=== PATIENT | female | born 1965 | race Caucasian/White ===

== ENCOUNTER 2020-06-18 15:22 | Outpatient (CLI) | payer BC, SELFPAY ==
--- NOTE | 2020-06-18 15:37 | MM_ITS ---
WS: [id number] BILATERAL DIGITAL SCREENING MAMMOGRAPHY WITH CAD CLINICAL INFORMATION: SCREEN HISTORY: Screening mammogram. No current complaints. COMPARISON: May 01, 2019 TECHNIQUE: Bilateral CC and MLO views. FINDINGS: The breasts are composed of heterogeneous fibroglandular density tissue, which can limit the detectio n of small underlying mass lesions. No suspicious mass, asymmetry, calcifications, or architectural d istortion. No evidence of malignancy. Vascular calcification. MM/[id number] IMPRESSION: BI-RADS: 2-Benign FOLLOW UP: 1 Year Follow-up Recommend return to annual screening mammography.
== END 2020-06-18 15:23 | disposition home or self-care (01) ==
LOC: RADSHAW 15:27
PROVIDERS: PCP Nurse Practitioner; Visit Provider Nurse Practitioner
DX: Z12.31 Encounter for screening mammogram for malignant neoplasm of breast (principal)
CPT/HCPCS: 77067

== ENCOUNTER 2021-09-09 08:33 | Outpatient (CLI) | payer BC, SELFPAY ==
--- NOTE | 2021-09-09 08:52 | MM_ITS ---
WS: [id number] Bilateral screening digital mammogram, 09/09/2021 Clinical Data: SCREENING Comparison: 06/18/2020, 05/01/2019, 04/08/2018. Findings: The breast parenchymal pattern shows fibroglandular tissue. No spiculated masses or clustered calcif ications are seen. There are no secondary signs of carcinoma. MM/[id number] Impression: 1. Negative bilateral mammogram unchanged. 2. Recommend annual screening mammograms. BIRADS: 1-Negative FOLLOW UP: 1 Year Follow-up The CAD checker in was used.
== END 2021-09-09 08:34 | disposition home or self-care (01) ==
PROVIDERS: PCP Nurse Practitioner; Visit Provider Nurse Practitioner
DX: Z12.31 Encounter for screening mammogram for malignant neoplasm of breast (principal)
CPT/HCPCS: 77067

== ENCOUNTER 2022-08-30 19:51 | Emergency (ER) | payer BC, SELFPAY ==
--- NOTE | 2022-08-30 19:56 | XRR_ITS ---
PROCEDURE INFORMATION: Exam: XR Chest Exam date and time: 08/30/2022 8:06 PM Age: 57 years old Clinical indication: Shortness of breath; Patient HX: N/v; Additional info: SOB TECHNIQUE: Imaging protocol: Radiologic exam of the chest. Views: 1 view. COMPARISON: CR XR chest 1V [id number] 10/31/2018 3:17 PM FINDINGS: Lungs: Unremarkable. No consolidation. Pleural spaces: Unremarkable. No pleural effusion. No pneumothorax. Heart/Mediastinum: Unremarkable. No cardiomegaly. Bones/joints: Unremarkable. XR/XR chest 1V portable [id number] IMPRESSION: No acute findings.
[2022-08-30 20:20] VITALS: BP 134/69; PULSE 115; RESP 15; TEMP 37.8; O2SAT 96; BMI 24.1
[2022-08-30 20:38] LABS: Influenza A by IFA positive (Negative); Influenza B by IFA negative (Negative)
--- NOTE | 2022-08-30 20:57 | W.ED.URI ---
HPI - URI/Sore Throat General: Chief Complaint: Nausea/Vomiting/Diarrhea Stated Complaint: flu symptoms Time Seen by Provider: 08/30/22 20:53 History of Present Illness: 57-year-old female comes in today with malaise for 2 days and fever. Patient also reports poor oral intake. Patient appears unwell but not toxic. Patient reports nausea without vomiting. Associated symptoms: Reports fever(s) and nausea Review of Systems Const: Reports: fever(s) Resp: Reports: non-productive cough GI: Reports: nausea Physical Exam Const: COMMON NORMALS: alert HENMT: COMMON NORMALS: normocephalic HEAD & SCALP: normocephalic MOUTH: Normal oral and palatal mucosa present THROAT: posterior oropharynx normal Neck/C-Spine: COMMON NORMALS: full ROM and no meningeal signs Resp: COMMON NORMALS: normal respiratory effort and clear to auscultation bilaterally AUSCULTATION: clear to auscultation bilaterally Cardio: COMMON NORMALS: regular rate and regular rhythm RATE: regular rate RHYTHM: regular rhythm GI: COMMON NORMALS: non-tender Extremity: COMMON NORMALS: normal to inspection Neuro: SENSORIUM/ORIENTATION: Yes alert MENINGEAL SIGNS: Yes no meningeal signs Skin: COMMON NORMALS: turgor normal GENERAL SKIN EXAM: turgor normal Course Vital Signs: Vital signs: Vital Signs Temperature 100.0 F H 08/30/22 21:00 Pulse Rate 115 H 08/30/22 21:00 Respiratory Rate 15 08/30/22 21:00 Blood Pressure 134/69 08/30/22 21:00 Pulse Oximetry 96 08/30/22 21:00 Oxygen Delivery Va thod 08/30/22 21:00 MDM - URI/Sore Throat Medical Decision Making 57-year-old female comes in today for complaints of fever, poor oral intake, and concern for dehydration. On exam patient appears unwell but not toxic. Abdomen soft nontender. Posterior pharynx is pink and moist. Skin is warm and dry. No edema is noted in the extremities. Vital signs show a temperature of 100, and pulse of 115. Differential diagnosis includes pneumonia, upper respiratory infection, dehydration. Chest x-ray showed no pneumonia. Flu testing was positive for type a flu. Patient was medicated with 1 L of IV fluid for mild dehydration, 15 mg of ketorolac for headache, and 10 mg of Reglan for nausea. Patient was encouraged to drink plenty of fluids, use acetaminophen and ibuprofen for pain and fever, and follow-up with primary care as needed. Patient reported understanding agreed to plan. Lab Data Radiology Impressions Chest X-Ray 08/30/22 19:56 IMPRESSION: No acute findings. Laboratory Results Influenza Type A Ag positive (Negative) H 08/30/22 20:25 Influenza Type B Ag negative (Negative) 08/30/22 20:25 Discharge Plan Discharge Patient Disposition: Home Clinical Impression: Influenza A, Dehydration Condition: Stable Prescriptions: New ondansetron 4 mg tablet,disintegrating 4 mg PO Q8H PRN (Reason: nausea and vomiting) Qty: 7 0RF Discharge Orders: Discharge ED (Routine); Ordered 08/30/22 Ordered By: Paramjit Santana Discharge Diet: Usual diet Discharge Activity: Increase activity as tolerated Patient Instructions: Influenza (ED) Activity Restrictions/Additional Instructions: Home and rest. Encourage plenty of fluids. Use frequent sips of water and fluids in order to maintain hydration. Follow-up with primary care as needed. Return to ER for worsening symptoms such as severe chest pain, increased shortness of breath, no urine output within 8 hours, or new concerns. 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
[2022-08-30 21:00] VITALS: BP 134/69; PULSE 115; RESP 15; TEMP 37.8; O2SAT 96
[2022-08-30] MEDS: sodium chloride 0.9% 1,000 ML 999 ML IV (21:21)
[2022-08-30] MEDS: ketorolac 30 mg/mL INJ 15 MG IVP (21:22)
[2022-08-30] MEDS: metoclopramide 5 mg/mL SDV 2 mL 10 MG IVP (21:23)
[2022-08-30 22:42] VITALS: PULSE 81; O2SAT 97
== END 2022-08-30 22:43 | disposition home or self-care (01) ==
PROVIDERS: Emergency Medicine; Emergency Provider Nurse Practitioner Family
DX: J10.1 Influenza due to other identified influenza virus with other respiratory manifestations (principal); E86.0 Dehydration; R19.7 Diarrhea, unspecified; R11.0 Nausea
CPT/HCPCS: 71045; 87804; 96361; 96374; 96375; 99284; J1885; J2765; J7030

== ENCOUNTER 2022-10-11 14:29 | Outpatient (CLI) | payer OTHER, SELFPAY ==
--- NOTE | 2022-10-11 14:44 | MM_ITS ---
WS: [id number] BILATERAL 3D TOMOSYNTHESIS DIGITAL SCREENING MAMMOGRAPHY WITH CAD CLINICAL INFORMATION: SCREENING HISTORY: Screening mammogram. No current complaints. COMPARISON: 2020 TECHNIQUE: Bilateral CC and MLO views. FINDINGS: The breasts are composed of heterogeneous fibroglandular density tissue, which can limit the detectio n of small underlying mass lesions. No suspicious mass, asymmetry, calcifications, or architectural d istortion. No evidence of malignancy. Vascular calcification. A few incidental punctate calcification s. MM/[id number] IMPRESSION: BI-RADS: 2-Benign FOLLOW UP: 1 Year Follow-up Recommend return to annual screening mammography.
== END 2022-10-11 14:30 | disposition home or self-care (01) ==
PROVIDERS: PCP Nurse Practitioner Family; Visit Provider Nurse Practitioner Family
DX: Z12.31 Encounter for screening mammogram for malignant neoplasm of breast (principal)
CPT/HCPCS: 77063; 77067

== ENCOUNTER 2023-09-11 17:39 | Emergency (ER) | payer OTHER, SELFPAY ==
[2023-09-11 18:09] LABS: Basophils % 0.1 %; Eosinophils % 0.1 %; Hematocrit 43.5 % (36-47); Lymphocytes # 0.4 10^3/uL (0.8-4.8); Lymphocytes % 5.8 %; Mean Corpuscular HGB Conc 33.3 g/dL (30-55); Mean Corpuscular Hemoglobin 30.1 pg (27-33); Mean Corpuscular Volume 90.2 fl (85-98); Mean Platelet Volume 9.8 fL (7.4-10.4); Monocytes # 0.2 10^3/uL (0.2-0.9); Monocytes % 2.8 %; Neutrophils # 6.67 10^3/uL (1.8-7.7); Neutrophils % 90.7 %; Nucleated Red Blood Cells % 0 %; Platelet Count 200 10^3/cmm (157-399); Red Blood Count 4.82 10^6/uL (3.85-5.65); Red Cell Distribution Width 12.3 % (12.1-15.1); White Blood Count 7.37 10^3/uL (3.29-11.43)
[2023-09-11 18:10] VITALS: BP 139/66; PULSE 92; RESP 18; TEMP 36.6; O2SAT 99; BMI 26.6
--- NOTE | 2023-09-11 18:26 | ED_ITS ---
HPI - COVID 2 General: Chief Complaint: Nausea/Vomiting/Diarrhea Stated Complaint: V/D/N Time Seen by Provider: 09/11/23 18:07 History of Present Illness: Patient is a 58-year-old female with a past medical history significant for hypertension, GERD, and migraines who presents to the emergency department for evaluation of abdominal pain, vomiting, and diarrhea. Patient reports that her symptoms started this afternoon at approximately 1600 and has continued to progress since onset. She currently rates her pain as a 5 out of 10 in severity that she describes as a cramping-like sensation. Patient states that she also has a mild right-sided headache that she describes as a aching-like sensation. Patient reports a history of migraines and states that this episode is not as bad as prior migraines in the past. Patient admits to multiple episodes of emesis and diarrhea. Patient is concerned that she might be dehydrated. Patient reports that her son similar symptoms approximately 2 weeks ago. She denies melena, hematochezia, or hematemesis. Patient states that she will get mildly lightheaded with vomiting, however, she denies any lightheadedness or dizziness at rest. Surgical history significant for a cholecystectomy, hysterectomy, and a right-sided oophorectomy. Patient still has her left ovary. Admits to feeling chilled but denies known fevers. She denies cough, congestion, sore throat, otalgia, otorrhea, chest pain, shortness of breath, visual disturbances, extremity weakness, numbness, tingling, dysuria, hematuria, or any other associated symptoms. No other complaints at this time. COVID 19 common symptoms: positive chills, headache(s), nausea, vomiting and diarrhea; negative fever(s), non-productive cough, productive cough, dyspnea, throat pain or nasal congestion COVID 19 other sytmptoms: negative chest pain or dizziness COVID Results: 2 SARS-CoV-2 Antigen (Rapid) negative (Negative) 09/11/23 18:59 Review of Systems 2 General: Reports: 10 or more systems reviewed and unremarkable except in HPI and below Const: Reports: chills; Denies: fever(s) or change in appetite Eyes: Denies: change in vision or blurry vision ENMT: Denies: throat pain, ear or mastoid pain, ear discharge, nasal discharge or nasal congestion Card: Reports: lightheadedness; Denies: chest pain, palpitations or syncope Resp: Denies: dyspnea, productive cough, non-productive cough or wheezing GI: Reports: abdominal pain, nausea, vomiting and diarrhea; Denies: constipation : Denies: flank pain, dysuria or hematuria Musc: Denies: neck pain, back pain or extremity pain Skin/Breast: Denies: rash Neuro: Reports: headache(s); Denies: numbness in extremities, weakness in extremities, dizziness or vertigo Physical Exam 2 Const: COMMON NORMALS: no acute distress, patient oriented x3 and alert HENMT: COMMON NORMALS: normocephalic, atraumatic, moist oral mucous membranes and oropharynx normal HEAD & SCALP: normocephalic and atraumatic Eye: COMMON NORMALS: Equal, round and reactive pupils present, EOMs intact bilaterally, conjunctivae normal and no scleral icterus CONJUNCTIVA: Yes conjunctivae normal PUPIL: Yes Equal, round and reactive pupils present Neck/C-Spine: COMMON NORMALS: full ROM, supple and no meningeal signs Chest: COMMONS NORMALS: normal inspection of the chest Resp: COMMON NORMALS: normal respiratory effort, No retractions, No use of accessory muscles and clear to auscultation bilaterally AUSCULTATION: clear to auscultation bilaterally Cardio: COMMON NORMALS: regular rate, regular rhythm, S1 normal heart sound present, S2 normal heart sound present, No gallops present (Cardio), No clicks present (Cardio), No murmurs present (Cardio) and No rub (Cardio) RATE: r egular rate RHYTHM: regular rhythm HEART SOUNDS: S1 normal heart sound present and S2 normal heart sound present GI: OTHER: Normoactive bowel sounds in all 4 quadrants. Mild suprapubic tenderness noted to palpation. No McBurney's point tenderness, Rovsing sign, Landry sign, or peritoneal signs noted. No evidence of rebound tenderness. : COMMON NORMALS: Yes no CVA tenderness BLADDER/KIDNEY EXAM: Yes no CVA tenderness Back/Pelvis: COMMON NORMALS: no CVA tenderness Extremity: OTHER: Moving bilateral upper and lower extremities without weakness or deficit. Neuro: COMMON NORMALS: patient oriented x3 SENSORIUM/ORIENTATION: Yes alert MENINGEAL SIGNS: Yes no meningeal signs OTHER: Patient is alert and oriented x 4. No focal neurological deficits noted on examination. Sensation intact in the bilateral upper and lower extremities. No meningeal signs noted. Negative Kernig's and Brudzinski sign. Skin: COMMON NORMALS: no rashes or lesions noted GENERAL SKIN EXAM: no rashes or lesions noted Course 2 Vital Signs: Vital signs: Vital Signs Temperature 97.9 F 09/11/23 18:10 Pulse Rate 92 09/11/23 18:10 Respiratory Rate 18 09/11/23 18:46 Blood Pressure 139/66 09/11/23 18:10 Pulse Oximetry 99 09/11/23 18:46 Oxygen Delivery Me thod Room Air 09/11/23 18:46 MDM - COVID Medical Decision Making Patient is a 58-year-old female with a past medical history significant for hypertension, GERD, and migraines who presents to the emergency department for evaluation of abdominal pain, vomiting, and diarrhea. On physical examination patient is nontoxic and in no acute distress. Vital signs remained stable throughout the ED course. Patient is afebrile. Patient is neurovascularly intact. Patient is alert and oriented x 4. No focal neurological deficits noted on examination. Negative Kernig's and Brudzinski sign. I do not think meningitis or encephalitis is likely at this time. Patient reports that she has a history of migraines and this is similar to prior episodes. CBC showed no evidence of leukocytosis. CMP and lipase unremarkable. Urinalysis showed 5-10 red blood cells, 0-4 white blood cells, 1+ bacteria, and 5-10 epithelial cells. Urine likely contaminated. Patient is denying any urinary symptoms of any kind. I do not think urinary tract infection is likely at this time. Influenza and COVID-19 negative. Patient reports that her son recently had similar symptoms. CT of the abdomen pelvis with contrast showed no acute intra-abdominal or intrapelvic pathology. Symptoms likely related to a viral gastroenteritis. I will treat the patient with Zofran and have her follow-up with her primary care provider. See handout over generalize instructions. Increase oral hydration. Clear liquid diet and slowly advance as tolerated. Avoid large fatty greasy meals that can exacerbate your symptoms. Tylenol and ibuprofen as needed for fever and comfort. A prescription of Zofran was sent to your pharmacy to be picked up. Take medication as prescribed. Call your primary care provider tomorrow with an update of your symptoms and to schedule appointment for further management/evaluation. Return to the emergency department for any rapid or worsening symptoms to include but not limited to worsening abdominal pain, migration of abdominal pain to right lower quadrant, uncontrollable vomiting, lightheadedness, dizziness, chest pain, shortness of breath, or as needed. I discussed the patient's history, exam, and all findings with Dr. Schneider in the emergency department who agreed my assessment and plan. He did not feel the patient required admission or further evaluation at this time. Patient stated understanding of all discharge instructions was agreeable to plan of care. Differential diagnosis includes but is not limited to pancreatitis, urinary tract infection, appendicitis, gastroenteritis, obstruction Lab Data 09/11/23 18:03 09/11/23 18:03 Radiology Impressions Abdomen/Pelvis CT 09/11/23 18:33 IMPRESSION: No acute intra-abdominal or intrapelvic pathology. Laboratory Results WBC 7.37 10^3/uL (3.29-11.43) 09/11/23 18:03 RBC 4.82 10^6/uL (3.85-5.65) 09/11/23 18:03 Hgb 14.50 g/dL (11.27-16.99) 09/11/23 18:03 Hct 43.5 % (36-47) 09/11/23 18:03 MCV 90.2 fl (85-98) 09/11/23 18:03 MCH 30.1 pg (27-33) 09/11/23 18:03 MCHC 33.3 g/dL (30-55) 09/11/23 18:03 RDW 12.3 % (12.1-15.1) 09/11/23 18:03 Plt Count 200 10^3/cmm (157-399) 09/11/23 18:03 MPV 9.8 fL (7.4-10.4) 09/11/23 18:03 Neut % (Auto) 90.7 % 09/11/23 18:03 Lymph % (Auto) 5.8 % 09/11/23 18:03 [place] % (Auto) 2.8 % 09/11/23 18:03 Eos % (Auto) 0.1 % 09/11/23 18:03 Baso % (Auto) 0.1 % 09/11/23 18:03 Neut # (Auto) 6.67 10^3/uL (1.8-7.7) 09/11/23 18:03 Lymph # (Auto) 0.4 10^3/uL (0.8-4.8) L 09/11/23 18:03 [place] # (Auto) 0.2 10^3/uL (0.2-0.9) 09/11/23 18:03 Eos # (Auto) 0.0 10^3/uL (0.0-0.8) 09/11/23 18:03 Baso # (Auto) 0.0 10^3/uL (0.0-0.1) 09/11/23 18:03 Nucleated RBC % (auto) 0 % 09/11/23 18:03 Nucleated RBCs # 0.0 /100WBC 09/11/23 18:03 Sodium 143 mmol/L (136-145) 09/11/23 18:03 Potassium 4.2 mmol/L (3.5-5.1) 09/11/23 18:03 Chloride 108 mmol/L (98-107) H 09/11/23 18:03 Carbon Dioxide 25 mmol/L (22-29) 09/11/23 18:03 Anion Gap 14.2 (5-19) 09/11/23 18:03 BUN 13 mg/dL (8-23) 09/11/23 18:03 Creatinine 0.7 mg/dL (0.5-0.9) 09/11/23 18:03 GFR Calculation 85.4 mL/min (90-130) L 09/11/23 18:03 Glucose 130 mg/dL (65-115) H 09/11/23 18:03 Calculated Osmolality 298 mOsm/kg (285-295) H 09/11/23 18:03 Calcium 9.1 mg/dL (8.5-10.5) 09/11/23 18:03 Total Bilirubin 0.7 mg/dL (0.15-1.2) 09/11/23 18:03 AST 15 U/L (0-32) 09/11/23 18:03 ALT 16 U/L (0-33) 09/11/23 18:03 Alkaline Phosphatase 76 U/L (35-105) 09/11/23 18:03 Total Protein 7.5 g/dL (6.6-8.7) 09/11/23 18:03 Albumin 4.5 g/dL (3.5-5.2) 09/11/23 18:03 Globulin 3.0 g/dL (1.3-4.6) 09/11/23 18:03 Lipase 50 U/L (13-60) 09/11/23 18:03 Urine Color Yellow (Yellow) 09/11/23 18:59 Urine Appearance Clear (CLEAR) 09/11/23 18:59 Urine pH 5 (5-7) 09/11/23 18:59 Ur Specific [place] 1.025 (1.005-1.030) 09/11/23 18:59 Urine Protein Neg (Negative) 09/11/23 18:59 Urine Glucose (UA) Norm (Normal) 09/11/23 18:59 Urine Ketones 2+ (Negative) H 09/11/23 18:59 Urine Blood 2+ (Negative) H 09/11/23 18:59 Urine Nitrate Negative (Negative) 09/11/23 18:59 Urine Bilirubin Neg (Negative) 09/11/23 18:59 Urine Urobilinogen Norm mg/dL (Negative) 09/11/23 18:59 Ur Leukocyte Esterase Negative (Negative) 09/11/23 18:59 Urine RBC 5-10 /hpf (0-2) H 09/11/23 18:59 Urine WBC 0-4 /hpf (0-5) H 09/11/23 18:59 Ur Squamous Epith Cells 5-10 /hpf (0-5) H 09/11/23 18:59 Amorphous Sediment Not Reportable 09/11/23 18:59 Urine Bacteria 1+ /hpf (NONE) H 09/11/23 18:59 Urine Mucus 2+ /hpf 09/11/23 18:59 Influenza Type A Ag negative (Negative) 09/11/23 18:59 Influenza Type B Ag negative (Negative) 09/11/23 18:59 SARS-CoV-2 Ag (Rapid) negative (Negative) 09/11/23 18:59 2 SARS-CoV-2 Antigen (Rapid) negative (Negative) 09/11/23 18:59 All radiology interpretation(s) finalized by discharge Discharge Plan Discharge Patient Disposition: Home Clinical Impression: Gastroenteritis Condition: Stable Prescriptions: New ondansetron 4 mg tablet,disintegrating 4 mg PO Q8H 5 Days Qty: 15 0RF No Action ondansetron 4 mg tablet,disintegrating 4 mg PO Q8H PRN (Reason: nausea and vomiting) Qty: 7 0RF Discharge Orders: Discharge ED (Routine); Ordered 09/11/23 Ordered By: Edward Montalvo Referrals: Sumi Day FNP [Primary Care Provider] - Patient Instructions: Gastroenteritis (ED) Activity Restrictions/Additional Instructions: See handout over generalize instructions. Increase oral hydration. Clear liquid diet and slowly advance as tolerated. Avoid large fatty greasy meals that can exacerbate your symptoms. Tylenol and ibuprofen as needed for fever and comfort. A prescription of Zofran was sent to your pharmacy to be picked up. Take medication as prescribed. Call your primary care provider tomorrow with an update of your symptoms and to schedule appointment for further management/evaluation. Return to the emergency department for any rapid or worsening symptoms to include but not limited to worsening abdominal pain, migration of abdominal pain to right lower quadrant, uncontrollable vomiting, lightheadedness, dizziness, chest pain, shortness of breath, or as needed. 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
[2023-09-11 18:31] LABS: Alanine Aminotransferase 16 U/L (0-33); Albumin Level 4.5 g/dL (3.5-5.2); Alkaline Phosphatase 76 U/L (35-105); Anion Gap 14.2 (5-19); Aspartate Amino Transferase 15 U/L (0-32); Blood Urea Nitrogen 13 mg/dL (8-23); Calcium 9.1 mg/dL (8.5-10.5); Carbon Dioxide 25 mmol/L (22-29); Chloride 108 mmol/L (98-107); Glomerular Filtration Rate 85.4 mL/min (90-130); Glucose 130 mg/dL (65-115); Lipase 50 U/L (13-60); Osmolality Calculated 298 mOsm/kg (285-295); Potassium 4.2 mmol/L (3.5-5.1); Sodium 143 mmol/L (136-145); Total Bilirubin 0.7 mg/dL (0.15-1.2); Total Protein 7.5 g/dL (6.6-8.7)
--- NOTE | 2023-09-11 18:33 | CTR_ITS ---
PROCEDURE INFORMATION: Exam: CT Abdomen And Pelvis With Contrast Exam date and time: 09/11/2023 7:48 PM Age: 58 years old Clinical indication: Abdominal pain; Generalized; Prior surgery; Surgery date: 6+ months; Surgery type: Donna, hyst; Additional info: Acute onset abdominal pain TECHNIQUE: Imaging protocol: Computed tomography of the abdomen and pelvis with contrast. Radiation optimization: All CT scans at this facility use at least one of these dose optimization techniques: automated exposure control; mA and/or kV adjustment per patient size (includes targeted exams where dose is matched to clinical indication); or iterative reconstruction. Contrast material: OMNI 350; Contrast volume: 100 ml; Contrast route: INTRAVENOUS (IV); REPORTING DATA: Count of CT and Cardiac NM exams in prior 12 months: This patient has received 0 known CTs and 0 known cardiac nuclear medicine studies in the 12 months prior to the current study. COMPARISON: MR MRCP [id number] 04/04/2018 8:01 PM RADIATION DOSE METRICS: Total DLP (mGy-cm): 664 FINDINGS: Diaphragm: A small hiatal hernia is present. Liver: Subcentimeter hepatic cysts re-identified. The liver is otherwise unremarkable. No cirrhotic features. Gallbladder and bile ducts: The gallbladder has been surgically removed. Pancreas: Normal. No ductal dilation. Spleen: Normal. No splenomegaly. Adrenal glands: Normal. No mass. Kidneys and ureters: Normal. No hydronephrosis. Stomach and bowel: There is mild thickening of the colon wall, likely secondary to underdistention. No surrounding inflammatory changes seen. Appendix: No evidence of appendicitis. Intraperitoneal space: Unremarkable. No free air. No significant fluid collection. Vasculature: Unremarkable. No abdominal aortic aneurysm. Lymph nodes: Unremarkable. No enlarged lymph nodes. Urinary bladder: Unremarkable as visualized. Reproductive: The uterus is surgically absent. Bones/joints: Degenerative changes of the spine seen. Soft tissues: Unremarkable. CT/CT abdomen pelvis w con* [id number] IMPRESSION: No acute intra-abdominal or intrapelvic pathology.
[2023-09-11] MEDS: sodium chloride 0.9% 1,000 ML 999 ML IV (18:43)
[2023-09-11] MEDS: ondansetron 2 mg/ML SDV 2 mL 4 MG IVP (18:43)
[2023-09-11 18:46] VITALS: RESP 18; O2SAT 99
--- NOTE | 2023-09-11 18:56 | PC.NURSE ---
Report taken from ANYI Kang at this time.
[2023-09-11] MEDS: ketorolac 30 mg/mL INJ 15 MG IVP (19:08)
[2023-09-11 19:28] LABS: Influenza A by IFA negative (Negative); Influenza B by IFA negative (Negative)
[2023-09-11 19:29] LABS: SARS Covid-2 Antigen negative (Negative)
[2023-09-11] MEDS: iohexol 350 mg/mL 500 mL Btl (per mL) IV (19:39)
[2023-09-11 19:45] LABS: Urine Appearance Clear (CLEAR); Urine Color Yellow (Yellow)
[2023-09-11 19:46] LABS: Add Urine Microscopic? YES; Bacteria Urine 1+ /hpf; Bilirubin Urine Neg (Negative); Blood Urine 2+ (Negative); Glucose Urine UA Norm (Normal); Ketones Urine 2+ (Negative); Leukocyte Esterase Urine Negative (Negative); Mucus Urine 2+ /hpf; Nitrate Urine Negative (Negative); Protein Urine Neg (Negative); Specific Gravity, Urine 1.025 (1.005-1.030); Urobilinogen Urine Norm (Negative); WBC Urine 0-4 /hpf (0-5); pH Urine 5 (5-7)
[2023-09-11 19:47] LABS: Add Urine Culture? No
[2023-09-11 21:17] VITALS: BP 126/100; PULSE 77; RESP 18; O2SAT 92
== END 2023-09-11 21:23 | disposition home or self-care (01) ==
PROVIDERS: Emergency Medicine; Emergency Provider Physician Assistant; PCP Nurse Practitioner Family
DX: K52.9 Noninfective gastroenteritis and colitis, unspecified (principal); Z11.52 Encounter for screening for COVID-19
CPT/HCPCS: 36415; 74177; 80053; 81001; 83690; 85025; 87426; 87804; 96361; 96374; 96375; 99285; J1885; J2405; J7030; Q9967

== ENCOUNTER 2023-10-30 15:16 | Outpatient (CLI) | payer OTHER, SELFPAY ==
--- NOTE | 2023-10-30 15:23 | MM_ITS ---
WS: [id number] BILATERAL SCREENING DIGITAL TOMOSYNTHESIS MAMMOGRAM WITH CAD HISTORY: SCREENING COMPARISON: 10/11/2022, 09/09/2021 and 06/18/2020 Bilateral CC and MLO views with tomosynthesis and synthetic mammography submitted. Computer aided det ection analyzed. Breast composition: There are scattered areas of fibroglandular density. No suspicious masses, microc alcifications or architectural distortion. No interval change in appearance of either breast. IMPRESSION: MM/[id number] BI-RADS: 2-Benign FOLLOW UP: 1 Year Follow-up
== END 2023-10-30 15:17 | disposition home or self-care (01) ==
LOC: RAD 15:16
PROVIDERS: PCP Nurse Practitioner Family; Visit Provider Nurse Practitioner Family
DX: Z12.31 Encounter for screening mammogram for malignant neoplasm of breast (principal); R92.323 Mammographic fibroglandular density, bilateral breasts
CPT/HCPCS: 77063; 77067

== ENCOUNTER 2024-12-12 11:38 | Outpatient (CLI) | payer OTHER, SELFPAY ==
--- NOTE | 2024-12-12 11:44 | MM_ITS ---
WS: [id number] BILATERAL 3D TOMOSYNTHESIS DIGITAL SCREENING MAMMOGRAPHY WITH CAD CLINICAL INFORMATION: SCREENING HISTORY: Screening mammogram. No current complaints. COMPARISON: 2023 TECHNIQUE: Bilateral CC and MLO views. FINDINGS: The breasts are composed of heterogeneous fibroglandular density tissue, which can limit the detection of small underlying mass lesions. No suspicious mass, asymmetry, calcifications, or architectural distortion. No evidence of malignancy. Vascular calcifications. MM/MM [facility] tomosynthesis [id number] IMPRESSION: DENSITY: The breasts are heterogeneously dense, which may obscure small masses. BI-RADS: 2 - Benign FOLLOW UP: 1 Year Follow-up Recommend return to annual screening mammography.
== END 2024-12-12 11:39 | disposition home or self-care (01) ==
PROVIDERS: PCP Nurse Practitioner Family; Visit Provider Nurse Practitioner Family
DX: Z12.31 Encounter for screening mammogram for malignant neoplasm of breast (principal); R92.333 Mammographic heterogeneous density, bilateral breasts; R92.1 Mammographic calcification found on diagnostic imaging of breast
CPT/HCPCS: 77063; 77067